=== PATIENT | male | born 1990 | race Caucasian/White ===

== ENCOUNTER 2019-05-25 23:24 | Emergency (ER) | payer SELFPAY ==
--- NOTE | 2019-05-25 23:56 | EDM.PDOC ---
ED HPI GENERAL MEDICAL PROBLEM - General Chief Complaint: General Stated Complaint: COUGHING Time Seen by Provider: 05/25/19 23:40 Source of Information: Reports: Patient - History of Present Illness INITIAL COMMENTS - FREE TEXT/NARRATIVE: The patient is a 28-year-old male who presents to the ER secondary to palpitations. He states that he has had this before in the past and had a work- up done by his primary care physician which was blood work only. He states that today, he was not feeling well and then after drinking coffee he felt some palpitations in his chest. This then resolved. He had coffee again later and he felt more palpitations. He also felt like he had a clear his throat and had a little bit of nausea. He denies any chest pain, no shortness of breath, no dyspnea with exertion, no fevers or chills. The patient has used cocaine once about a month ago but nothing since. throat Pain Score (Numeric/FACES): 3 - Related Data Allergies Allergy/AdvReac Type Severity Reaction Status Date / Time No Known Allergies Allergy Verified 05/25/19 23:32 Home Meds: Home Meds . [No Known Home Meds] 05/25/19 [History] Past Medical History HEENT History: Reports: None Cardiovascular History: Reports: None Respiratory History: Reports: None Gastrointestinal History: Reports: None Genitourinary History: Reports: None Musculoskeletal History: Reports: None Neurological History: Reports: None Psychiatric History: Reports: None Endocrine/Metabolic History: Reports: None Insulin Pump Model and Consumer Affairs Director: None Hematologic History: Reports: None Immunologic History: Reports: None Oncologic (Cancer) History: Reports: None Dermatologic History: Reports: None - Infectious Disease History Infectious Disease History: Reports: None - Past Surgical History Head Surgeries/Procedures: Reports: None Social & Family History - Family History Family Medical History: Noncontributory - Tobacco Use Smoking Status *Q: Never Smoker - Caffeine Use Caffeine Use: Reports: Coffee - Recreational Drug Use Recreational Drug Use: Yes Drug Use in Last 12 Months: Yes Recreational Drug Type: Reports: Cocaine ED ROS GENERAL - Review of Systems Review Of Systems: See Below (Positive for palpitations, negative for syncope, negative for near syncope, negative shortness of breath, negative for dyspnea exertion, all other Positives and pertinent negatives as per HPI. All other pertinent systems were reviewed and are negative) ED EXAM, GENERAL - Physical Exam Exam: See Below Free Text/Narrative:: Constitutional: No acute distress, Non-toxic appearance. HEENT: Normocephalic, Atraumatic, EOMI Neck: Normal range of motion, No stridor, trachea midline Respiratory: No respiratory distress, No tachypnea, lungs are clear Cardiovascular: Regular rate and rhythm, good peripheral pulses Gastrointestinal: Deferred Genital / Urinary: Deferred Musculoskeletal: All four extremities present and atraumatic Back: FROM Integument: Warm, Dry, Color is ethnicity appropriate, No rash. Neuro: Alert, Awake, No focal deficits noted Psych: Affect, Judgement, mood normal Course - Vital Signs Text/Narrative:: Given that the patient has had the symptoms in the past and he had a normal work -up with normal electrolytes, etc. I do not think that further blood work is warranted at this time. An ECG was performed to make sure that the patient does not have anything obvious such as long QT syndrome, Brugada syndrome, Ladarius -Parkinson-White, etc. ECG The ECG was read and interpreted by me. There are p waves before every QRS with a ventricular rate of 88. The [place], QRS, and QT intervals are all normal. [place] is normal. ST segments are baseline and the T wave morphology is normal. Final interpretation is a normal Sinus rhythm and a normal ECG. Given the entire clinical scenario the patient is stable for discharge and he needs to follow-up with his primary care physician for an outpatient Holter monitor. Last Recorded V/S: Last Vital Signs Temp 36.2 C 05/25/19 23:30 Pulse 102 H 05/25/19 23:30 Resp 18 05/25/19 23:30 BP 133/79 05/25/19 23:30 Pulse Ox 97 05/25/19 23:30 - Orders/Labs/Meds Orders: Active Orders 24 hr Category Date Time Status EKG 12 Lead [EKG Documentation Completion] [RC] STAT Care 05/25/19 23:43 Active Departure - Departure Time of Disposition: 23:56 Disposition: Home, Self-Care 01 Condition: Good Clinical Impression: Palpitations - Discharge Information Instructions: Palpitations Referrals: PCP,None [Primary Care Provider] - Sepsis Event Note - Evaluation Sepsis Screening Result: No Definite Risk - Focused Exam Vital Signs: Vital Signs Temp Pulse Resp BP Pulse Ox 05/25/19 23:30 36.2 C 102 H 18 133/79 97 Date Exam was Performed: 05/25/19 Time Exam was Performed: 23:51 - My Orders Last 24 Hours: My Active Orders 05/25/19 23:43 EKG 12 Lead [EKG Documentation Completion] [RC] STAT - Assessment/Plan Last 24 Hours: My Active Orders 05/25/19 23:43 EKG 12 Lead [EKG Documentation Completion] [RC] STAT
== END 2019-05-26 00:12 | disposition home or self-care (01) ==
LOC: MW.ED 23:24
DX: R00.2 Palpitations (principal)
CPT/HCPCS: 93005; 99283; 99284-25

== ENCOUNTER 2022-12-07 22:53 | Emergency (ER) | payer SELFPAY ==
[2022-12-07] MEDS ORDERED: Lidocaine 1% 5 ML VIAL INJECT ONE ×2 (23:10→23:51)
[2022-12-07] MEDS ORDERED: Octyl 2-Cyanoacrylate 1 g/1 mL 1 APPLIC PEN TOP ONE (23:17)
[2022-12-07] MEDS ORDERED: Diphtheria,Pertussis(Acell),Tetanus Vaccine 0.5 ML Syringe IM ONE (23:19)
[2022-12-07] MEDS ORDERED: Lidocaine 1% 5 ML VIAL ONE (23:50)
== END 2022-12-08 00:24 | disposition home or self-care (01) ==
LOC: MW.ED 22:53
DX: S61.213A Laceration without foreign body of left middle finger without damage to nail, initial encounter (principal); S61.215A Laceration without foreign body of left ring finger without damage to nail, initial encounter; Z23 Encounter for immunization; W26.8XXA Contact with other sharp object(s), not elsewhere classified, initial encounter; Y92.59 Other trade areas as the place of occurrence of the external cause
CPT/HCPCS: 12002; 90471; 90715; 99282; A9270; 99283; J3490